=== PATIENT | male | born 1990 | race Caucasian/White ===

== ENCOUNTER 2022-12-26 19:37 | Emergency (ER) | payer SELFPAY ==
[~2022-12-26] VITALS: Ht 172.7 cm; Wt 70.5 kg
[2022-12-26 19:40] VITALS: BP 139/78
== END 2022-12-26 20:00 | disposition left against medical advice (07) ==
LOC: ER 19:37 → EDBD 19:37 → ER 20:00
DX: T50.901A Poisoning by unspecified drugs, medicaments and biological substances, accidental (unintentional), initial encounter (principal); Z53.21 Procedure and treatment not carried out due to patient leaving prior to being seen by health care provider; Y92.513 Shop (commercial) as the place of occurrence of the external cause